=== PATIENT | female | born 1985 | race Caucasian/White ===

== ENCOUNTER 2017-08-12 23:18 | Emergency (ER) | payer SELFPAY ==
[2017-08-12 23:18] VITALS: BP 131/103; PULSE 95; RESP 18; TEMP 37; O2SAT 99; BMI 23.0
--- NOTE | 2017-08-12 23:25 | RAD_ITS ---
STUDY: X-RAY - RIGHT ANKLE REASON FOR EXAM: Female, 32 years old. Fall TECHNIQUE: 3 view(s) of the ankle. COMPARISON: 12/18/2016 FINDINGS: Normal visualized distal tibia. Nondisplaced fracture inferior tip of the fibula. Normal medial and lateral malleoli. Normal tibiotalar articulation and ankle mortise. Normal visualized talus and calcaneus. The visualized subtalar, talonavicular, calcaneocuboid and tarsal articulations are normal. Lateral soft tissue swelling. RAD/Ankle min 3 Views IMPRESSION: Fracture inferior tip of the fibula. Lateral soft tissue swelling. Electronically Signed: Zach Cheng DO at 23:47 EDT , Service support ,
--- NOTE | 2017-08-12 23:32 | ED.VISSUMM ---
- ER Visit Summary Date of Service: 08/12/17 Chief Complaint: Right ankle injury History of Present Illness: The patient is a 32 F who states that she was walking on the stairs in the dark when she missed the last step. She sustained an inversion injury to the right ankle. She notes no pain up by her knee or in the foot. All the pain seems to be localized in the lateral aspect of the right ankle Physical Examination: Vital signs stable There is swelling and ecchymosis over the lateral malleolus extending inferior and slightly posterior. There is no medial malleolar pain. No fibular head pain no fifth metatarsal pain foot appears uninjured is neurovascular intact distally. Test Results: X-rays of the ankle were obtained. This revealed a distal fibular avulsion fracture. Emergency Department Course and Treatment: Received [place] for pain. The patient will be placed in a postop shoe and will follow up with orthopedics. Impression: 1. Right distal fibular fracture This note was generated with [employer] dictation software. It may contain incorrect words, spelling, and punctuation that were not noted in review of the chart prior to signing ED Disposition - Plan for ED Patient: Disposition: Home or Assisted Living Chief Complaint: Lower Extremity Injury Instructions: ED Fx Ankle Lateral Malleolus Prescriptions: Hydrocodone Bitart/Apap 5-325 [[place] 5/325] 1 - 2 tab PO Q4H PRN PRN 3 Days #15 tab PRN Reason: Pain Referrals: Care Physician,No Primary [Primary Care Provider] - Aaron Lambert MD [STAFF PHYSICIAN] - (call in am for follow up)
--- NOTE | 2017-08-12 23:43 | ED.DCSUM_ITS ---
- ER Visit Summary Date of Service: 08/12/17 Chief Complaint: Right ankle injury History of Present Illness: The patient is a 32 F who states that she was walking on the stairs in the dark when she missed the last step. She sustained an inversion injury to the right ankle. She notes no pain up by her knee or in the foot. All the pain seems to be localized in the lateral aspect of the right ankle Physical Examination: Vital signs stable There is swelling and ecchymosis over the lateral malleolus extending inferior and slightly posterior. There is no medial malleolar pain. No fibular head pain no fifth metatarsal pain foot appears uninjured is neurovascular intact distally. Test Results: X-rays of the ankle were obtained. This revealed a distal fibular avulsion fracture. Emergency Department Course and Treatment: Received [place] for pain. The patient will be placed in a postop shoe and will follow up with orthopedics. Impression: 1. Right distal fibular fracture This note was generated with [employer] dictation software. It may contain incorrect words, spelling, and punctuation that were not noted in review of the chart prior to signing ED Disposition - Plan for ED Patient: Disposition: Home or Assisted Living Chief Complaint: Lower Extremity Injury Instructions: ED Fx Ankle Lateral Malleolus Prescriptions: Hydrocodone Bitart/Apap 5-325 [[place] 5/325] 1 - 2 tab PO Q4H PRN PRN 3 Days #15 tab PRN Reason: Pain Referrals: Care Physician,No Primary [Primary Care Provider] - Aaron Lambert MD [STAFF PHYSICIAN] - (call in am for follow up)
[2017-08-13] MEDS: HYDROcodone Bitartrate/Apap 5/325 Tablet PO (00:04)
== END 2017-08-13 00:18 | disposition home or self-care (01) ==
PROVIDERS: Emergency Provider Emergency Medicine
DX: S82.831A Other fracture of upper and lower end of right fibula, initial encounter for closed fracture (principal); F32.9 Major depressive disorder, single episode, unspecified; Z72.0 Tobacco use; X50.1XXA Overexertion from prolonged static or awkward postures, initial encounter; Y93.01 Activity, walking, marching and hiking; Y92.89 Other specified places as the place of occurrence of the external cause; Y99.8 Other external cause status
CPT/HCPCS: 73610; 99283

== ENCOUNTER 2017-08-14 14:43 | Emergency (ER) | payer SELFPAY ==
[2017-08-14 14:45] VITALS: BP 113/67; PULSE 90; RESP 18; TEMP 36.8; O2SAT 96; BMI 23.0
--- NOTE | 2017-08-14 16:10 | RAD_ITS ---
STUDY: X-RAY - RIGHT FOOT CLINICAL: Female, 32 years old. Fracture distal fibula TECHNIQUE: 3 view(s) of the foot. COMPARISON: December 18, 2016 FINDINGS: Normal talus, calcaneus, and tarsal bones. Normal visualized subtalar, talonavicular, calcaneocuboid, tarsal and tarsometatarsal articulations. Normal metatarsi. Bunion first metatarsal head. Normal metatarsophalangeal joint of the great toe. Normal tibial and fibular sesamoid bones. Normal interphalangeal joint of the great toe. Normal phalanges of the great toe. Normal second through fifth metatarsophalangeal joints. Normal interphalangeal joints and phalanges of the lesser toes. The soft tissue structures are unremarkable. RAD/Foot min 3 Views IMPRESSION: First metatarsal bunion otherwise no acute disease Electronically Signed: Cisco Scott MD at 17:21 EDT , Service support ,
--- NOTE | 2017-08-14 16:20 | RAD_ITS ---
STUDY: X-RAY - RIGHT ANKLE REASON FOR EXAM: Female, 32 years old. Previous fracture August 12, 2017 distal fibula TECHNIQUE: 3 view(s) of the ankle. COMPARISON: August 12, 2017 FINDINGS: Nondisplaced avulsion fracture distal fibula. The distal tibia appears normal. Normal tibiotalar articulation and ankle mortise. Normal visualized talus and calcaneus. The visualized subtalar, talonavicular, calcaneocuboid and tarsal articulations are normal. Moderate soft tissue swelling laterally. RAD/Ankle min 3 Views IMPRESSION: Avulsion fracture lateral malleolus Electronically Signed: Cisco Scott MD at 17:24 EDT , Service support ,
[2017-08-14] MEDS: Naproxen 500 MG Tablet PO (17:07)
--- NOTE | 2017-08-14 17:22 | ED.VISSUMM ---
- ER Visit Summary Date of Service: 08/14/17 Chief Complaint: Right foot and ankle pain History of Present Illness: The patient is a 32 F presenting for evaluation secondary to right foot and ankle pain. Patient states 2 days ago she suffered a mechanical fall where she missed some steps. She was seen in the emergency department was diagnosed with a distal fibular fracture was placed in a walking boot. Patient states that since then she has been unsteady on her feet actually has suffered another fall. Patient states that she simply cannot bear any weight on that leg, and could not take the pain and could make it to her orthopedics appointment tomorrow so she is presenting to the emergency department. Patient denies any other signs or symptoms or any other injuries. Physical Examination: Physical exam unremarkable except for lower extremity exam. Examination of the right leg shows no proximal fibular tenderness to palpation. There is bilateral malleoli tenderness palpation with swelling in the area some ecchymosis medially over the foot. Diffuse foot tenderness palpation 2+ DP pulses normal capillary refill. Test Results: Repeat x-ray of the ankle redemonstrates an avulsion fracture of the distal fibula. X-ray of the foot shows no evidence of new injury. Emergency Department Course and Treatment: Patient presented for evaluation secondary to increased pain in her foot and ankle. Repeat radiographs showed no new injury. Given the fact the patient is not tolerating weightbearing, she was placed in a posterior slab splint that was performed by the ED physician. Good capillary refill after placement. Patient will follow up with orthopedics tomorrow. She was instructed to become nonweightbearing. Disposition: Discharge Impression: 1. Right distal fibular fracture, subsequent encounter 2. Posterior slab leg splint by ED physician This note was generated with [employer] dictation software. It may contain incorrect words, spelling, and punctuation that were not noted in review of the chart prior to signing ED Disposition - Plan for ED Patient: Disposition: Home or Assisted Living Chief Complaint: Lower Extremity Injury Diagnosis: Fracture of distal fibula Instructions: ED Fx Ankle Lateral Malleolus Referrals: Aaron Lambert MD [STAFF PHYSICIAN] - 1 Day
== END 2017-08-14 17:37 | disposition home or self-care (01) ==
PROVIDERS: Emergency Provider Emergency Medicine
DX: S82.831D Other fracture of upper and lower end of right fibula, subsequent encounter for closed fracture with routine healing (principal); Z72.0 Tobacco use; W10.9XXD Fall (on) (from) unspecified stairs and steps, subsequent encounter
CPT/HCPCS: 29515; 73610; 73630; 99283

== ENCOUNTER 2023-09-11 02:39 | Emergency (ER) | payer MEDICAID, SELFPAY ==
[2023-09-11 02:40] VITALS: BP 142/106; PULSE 86; RESP 16; TEMP 36.2; O2SAT 99; BMI 41.3
--- NOTE | 2023-09-11 03:04 | CT_ITS ---
INDICATION: Lumbar radiculopathy, low back pain and left leg pain EXAMINATION: CT LUMBAR SPINE - CT Spine Lumbar W/O Contrast Injection TECHNIQUE: Helically acquired images were obtained of the lumbar spine. 2D reformats were reviewed. A radiation dose optimization technique was used for this scan. IV Contrast dosage and agent: None. COMPARISON: None. FINDINGS: VERTEBRAE: No fracture, prevertebral soft tissue swelling or suspicious osseous lesion. Adequate alignment with preserved lumbar lordosis. Preserved vertebral body heights. DISCS and SPINAL CANAL: Disc heights are preserved. No disc protrusion or significant disc bulging. No significant spinal canal or neural foraminal stenosis. VISUALIZED ABDOMEN: Visualized abdominal aorta is not dilated. There is no retroperitoneal adenopathy. CT/Spine Lumbar without Contrast IMPRESSION: Negative unenhanced CT of lumbar spine. Electronically Signed: Chaz Bella MD at 4:30 EDT ,
--- NOTE | 2023-09-11 03:04 | RAD_ITS ---
INDICATION: Left leg pain EXAMINATION/TECHNIQUE: X-RAY - LEFT XR Femur Min 2 Views COMPARISON: None. FINDINGS: SOFT TISSUES: No significant soft tissue swelling. No radiopaque foreign body detected. BONES/JOINTS: No acute fracture or subluxation. Normal alignment. Preservation of the joint space(s). No suspicious osseous lesion observed. RAD/Femur Min 2 Views IMPRESSION: Negative left femur Electronically Signed: Chaz Bella MD at 4:10 EDT ,
[2023-09-11] MEDS: Orphenadrine 60 MG/2 ML Ampul IV (03:12)
[2023-09-11] MEDS: dexAMETHasone 10 MG/ML Vial IV (03:12)
[2023-09-11] MEDS: Morphine 4 MG/ML Syringe IV (03:12)
[2023-09-11] MEDS: Ondansetron 4 MG/2 ML Vial IV (03:12)
[2023-09-11] MEDS: Gabapentin 300 MG Capsule PO (03:20)
[2023-09-11 03:24] LABS: Absolute Lymphocyte Count 1.46 X10^3/uL (0.83-4.51); Absolute Neutrophil Count 7.4 X10^3/uL (2.0-7.7); Basophil# 0.05 X10^3/uL; Basophil% 0.5 % (0-1); Eosinophils% 1.1 % (0-5); Hemoglobin 8.3 g/dL (12.0-15.0); Lymphocyte # 1.46 X10^3/ul (0.83-4.51); Lymphocyte % 15.8 % (19-41); Mean Corp Hgb Conc 29.6 g/dL (32-36); Mean Corpuscular Hgb 25.2 pg (27.0-32.0); Mean Corpuscular Volume 84.8 fL (81-99); Mean Platelet Vol. 9.9 fl (6.2-12.0); Monocyte# 0.26 X10^3/uL; Monocyte% 2.8 % (0-10); NRBC Flagged by Analyzer 0 % (0-5); Neutrophil # 7.35 X10^3/uL (2.7-7.7); Neutrophil % 79.5 % (47-70); Platelet Count 226 K/mm3 (150-450); RBC Distribution Width CV 16.8 % (11.6-14.6); RBC Distribution Width SD 51.9 fl (35.1-43.9); White Blood Count 9.3 K/mm3 (4.4-11.0)
[2023-09-11 03:33] LABS: Internal QC Validated? YES +Cl - CLEAR BKGD; Pregnancy, Serum, hCG Quali. NEGATIVE Negative
[2023-09-11 03:38] LABS: Anion Gap 5 (5-15); BUN 10 mg/dL (7-18); BUN/Creat Ratio 8.3 RATIO (10-20); Chloride 105 mmol/L (98-107); Creatinine, Serum 1.21 mg/dL (0.55-1.02); EST Glomerular Filtration Rate 52 mL/min (>60); Est Glom Filt Rate - Afr Amer 63 mL/min (>60); Estimated Creatinine Clearance 71.93 ml/min; Glucose 94 mg/dL (74-106); Magnesium 2.6 mg/dL (1.6-2.6); Potassium 3.8 mmol/L (3.5-5.1); Sodium Level 136 mmol/L (136-145)
--- NOTE | 2023-09-11 03:58 | EX.ED.DYSGE1 ---
HPI History of Present Illness Chief Complaint: Lower Extremity Injury Informant: patient and EMS Narrative Narrative: Patient is a 38-year-old female who reports no significant past medical history. She states that 4 days ago she noticed some pain in her midline to left low back without trauma. She states that there is no excessive activity and she denies any loss of bowel or bladder control or IV drug use. She states it was not that bad and she was able to go to sleep at night and the next morning as she was walking noticed that the pain was more intense and radiated into her left leg. She states that as the days the past the pain seems to be steadily worsening and secondary to this she comes in for evaluation [facility] Medical History no medical history no medical history Home Medications ferrous sulfate 325 mg (65 mg iron) tablet (Feosol) 325 mg PO DAILY 30 days #30 tabs 09/11/23 [Rx Last Taken Unknown] gabapentin 300 mg capsule 300 mg PO TID 30 days #90 caps 09/11/23 [Rx Last Taken Unknown] Allergy/AdvReac Type Severity Reaction Status Date / Time Penicillins [PCN] Allergy Rash Verified 08/14/17 14:43 Surgical History (Updated 09/11/23 @ 02:45 by Flor Waters) History of cholecystectomy History of salpingectomy Social History Smoking Status: Heavy Smoker (>10/day) [facility] ED Constitutional Constitutional ED: Denies chills or fever(s) ENT ENT ED: Denies sore throat Cardiovascular Cardiovascular: Denies chest pain Respiratory/Chest Respiratory/Chest: Denies cough or dyspnea Gastrointestinal Gastrointestinal: Denies abdominal pain, diarrhea, nausea or vomiting Genitourinary Genitourinary ED: Denies dysuria, hematuria or urinary frequency Musculoskeletal Musculoskeletal: Reports back pain Integumentary Denies rash Neurologic Neurologic: Reports paresthesias and weakness; Denies headache(s) Hematologic/Lymphatic Hematologic/Lymphatic: Denies easy bleeding or easy bruising EXAM Physical Exam Const Vital Signs: 09/11/23 02:40 Temperature 97.2 F L Temperature Source Temporal Pulse Rate 86 Respiratory Rate 16 Blood Pressure 142/106 H Blood Pressure Mean 118 Pulse Ox 99 Oxygen Delivery Method Room Air Positive well nourished, well developed and obese General Appearance ED: well developed; Negative for pallor Nutritional Appearance: obese HEENT HEENT Narrative: Normocephalic atraumatic Eyes PERRL and EOMs intact bilaterally General Eye ED: Negative for scleral icterus Neck supple Neck Narrative: No nuchal rigidity or meningeal signs Resp normal respiratory effort and clear to auscultation bilaterally Cardio regular rate and regular rhythm Rate: other Other Details: Heart is regular rate and rhythm without murmurs rubs or gallop Radial and carotid pulses are equal and symmetric GI normal to inspection, nondistended, normoactive bowel sounds, non-tender, non-distended and no masses GI Narrative: No voluntary guarding or rigidity or pulsatile mass Auscultation: normoactive bowel sounds Palpation: soft Back/Spine no CVA tenderness Back/Spine Narrative: No bony deformity or step-off of the thoracic or lumbar spine but there is midline lumbar pain with palpation No saddle anesthesia. Patellar reflexes are plus 1 out of 4 bilaterally. Straight leg raise is positive on the left at approximately 45 degrees. There is approximately 5 beats of clonus present on the left as well. No saddle anesthesia. Negative Babinski bilaterally Extremity normal to inspection Extremity Narrative: Pelvis is stable there is no shortening or external rotation of either lower extremity Left lower extremity is neurovascularly intact. There is no overlying soft tissue changes to suggest trauma or infection. Compartments are soft and compressible going against compartment syndrome No asymmetric edema or pitting edema and negative Homans' sign bilaterally Neuro oriented x3 and CN's II-XII intact bilaterally Sensorium / Orientation: alert Psych Psych Narrative: Patient has a nervous/anxious affect Skin no rashes or lesions noted, no wounds and skin turgor normal General Skin Exam: Negative for jaundice or pallor MDM MDM MDM Narrative Medical decision making narrative: Patient arrived to the ER hypertensive otherwise with stable vitals. She reported pain in the lower back with radiation in the left leg without any type of direct trauma or excessive activity. She also denies any loss of bowel or bladder control or IV drug use going against cauda equina or epidural abscess. She also denies any previous back surgery or injections going against discitis. Her history and exam is concerning for lumbar radiculopathy and therefore a CT scan was obtained to check for potential cause such as a herniated disc or spinal stenosis or foraminal stenosis. She reported pain in her left hip/femur so I elected to order an x-ray to look for potential bone cyst or signs of osteomyelitis or occult fracture. Imaging revealed no acute findings such as fracture dislocation or findings of nervous compression. The patient's hemoglobin is low at 8.3 but she also has elevation to her RDW as well as decreased to the MCV indicating this is iron deficiency anemia. She denies any dark or bloody urine or stool and as her BUN is normal I have low concern this is a GI bleed. At this time the patient is medically cleared for discharge as she does not have signs of neuro claudication or infectious process. She replaced on gabapentin secondary to the exam and history indicating she has lumbar radiculopathy as well as iron supplements secondary to her anemia but is otherwise safe for discharge and can follow-up on an outpatient basis. History & Record Review Discussion w/independent historian: Patient Lab Data Attestation: I reviewed the patient's lab results. Labs: Laboratory Results - last 24 hr 09/11/23 09/11/23 03:05 03:16 WBC 9.3 RBC 3.30 L Hgb 8.3 L Hct 28.0 L MCV 84.8 MCH 25.2 L MCHC 29.6 L RDW Std Deviation 51.9 H RDW Coeff of Bisi 16.8 H Plt Count 226 MPV 9.9 Immature Gran % (Auto) 0.300 Neut % (Auto) 79.5 H Lymph % (Auto) 15.8 L [place] % (Auto) 2.8 Eos % (Auto) 1.1 Baso % (Auto) 0.5 Absolute Neuts (auto) 7.4 Absolute Lymphs (auto) 1.46 Nucleated RBC % 0 Sodium 136 Potassium 3.8 Chloride 105 Carbon Dioxide 26.0 Anion Gap 5 BUN 10 Creatinine 1.21 H Estim Creat Clear Calc 71.93 Est GFR (MDRD) Af Amer 63 Est GFR (MDRD) Non-Af 52 L BUN/Creatinine Ratio 8.3 L Glucose 94 Calcium 9.0 Magnesium 2.6 Serum , Qual NEGATIVE Radiography Diagnostic Testing: Clinical Impression(s) from Imaging Studies Femur X-Ray 09/11/23 03:04 IMPRESSION: Negative left femur Electronically Signed: Chaz Bella MD at 4:10 EDT , Lumbar Spine CT 09/11/23 03:04 IMPRESSION: Negative unenhanced CT of lumbar spine. Electronically Signed: Chaz Bella MD at 4:30 EDT , Left femur x-ray as interpreted by the emergency medicine physician reveals no acute fracture dislocation joint effusion or foreign body. Discharge Plan Triage Chief Complaint: Lower Extremity Injury Other Complaint: Back ED Provider: Selwyn Quiroz Dx/Rx/DC Orders Clinical Impression: Acute lumbar radiculopathy, Iron deficiency anemia Instructions: Understanding Lumbar Radiculopathy, ED Anemia, Iron-Deficiency (Adult) Prescriptions: New gabapentin 300 mg capsule 300 mg PO TID 30 Days Qty: 90 0RF ferrous sulfate [Feosol] 325 mg (65 mg iron) tablet 325 mg PO DAILY 30 Days Qty: 30 0RF Primary Care Provider: Care Physician,No Primary Referrals: Joseluis Gomez MD [Med Staff - Active Staff] - Care Physician,No Primary [Primary Care Provider] - Activity Restrictions/Additional Instructions: Please follow-up with your family doctor for repeat evaluation and to discuss MRI for further diagnosis of your symptoms as well as repeat laboratory studies to ensure your hemoglobin has improved while on iron The patient is medically cleared from an emergency room standpoint for placement in police custody/assisted. Her history and exam is consistent with lumbar radiculopathy and she would benefit from extra padding while sleeping or sitting. Disposition Disposition: Home, Self Care
[2023-09-11 04:51] VITALS: BP 128/73; PULSE 71; RESP 19; TEMP 36.3; O2SAT 96
== END 2023-09-11 04:52 | disposition home or self-care (01) ==
PROVIDERS: Emergency Provider Emergency Medicine; Visit Provider Emergency Medicine
DX: M54.16 Radiculopathy, lumbar region (principal); D50.9 Iron deficiency anemia, unspecified; F17.200 Nicotine dependence, unspecified, uncomplicated
CPT/HCPCS: 72131; 73552; 80048; 83735; 84703; 85025; 96374; 96375; 99285; J2405